=== PATIENT | male | born 1965 | race American Indian/Alaskan Native ===

== ENCOUNTER 2019-08-29 06:23 | Observation (INO) | payer SELFPAY ==
--- NOTE | 2019-08-29 07:24 | XRay Report ---
CHEST 1 VIEW INDICATION / CLINICAL INFORMATION: Chest Pain. COMPARISON: None available. FINDINGS: SUPPORT DEVICES: None. HEART / MEDIASTINUM: No significant abnormality. LUNGS / PLEURA: No significant pulmonary or pleural abnormality. No pneumothorax. ADDITIONAL FINDINGS: No significant additional findings. IMPRESSION: 1. No acute findings. Signer Name: Chaparrita Tripp MD Signed: 08/29/2019 7:20 AM Workstation Name: [id number]
[2019-08-29] MEDS ORDERED: fentaNYL 100 MCG/2 ML INJ IV ONE (07:28)
[2019-08-29] MEDS ORDERED: ONDANSETRON 4 MG/2 ML INJ IV ONE (07:28)
[2019-08-29] MEDS ORDERED: NITROGLYCERIN 2% OINT 1 GM TP ONE (07:28)
[2019-08-29] MEDS ORDERED: ASPIRIN 325 MG TAB PO ONE (07:29)
[2019-08-29 07:33] LABS: Basophils # (Auto) 0.1 K/mm3 (0.0-0.1); Eosinophils # (Auto) 0.3 K/mm3 (0.0-0.4); Eosinophils % (Auto) 5.3 % (0.0-4.3); Monocytes # (Auto) 0.6 K/mm3 (0.0-0.8); Monocytes % (Auto) 13.1 % (0.0-7.3)
--- NOTE | 2019-08-29 07:39 | Emergency Department Report ---
HPI - General Chief Complaint: Chest Pain Time Seen by Provider: 08/29/19 07:22 - HPI HPI: Room 4 The patient is a 54-year-old male presenting with a chief complaint of chest pain. The patient states for the past one week she's had intermittent left-si ded chest pain described as sharp/aching/pressure in nature. Patient is to shortness of breath but denies nausea/vomiting or diaphoresis with this pain. Patient admits to a pleuritic component. The patient states she was diagnosed with the left lower extremity DVT approximately 1-2 months ago but has not been able to afford his anticoagulation. Patient states she's never had a stress test or cardiac catheterization. The patient states he last used cocaine yesterday ED Past Medical Hx - Past Medical History Previous Medical History?: Yes Hx Hypertension: Yes Hx Deep Vein Thrombosis: Yes (x2) - Surgical History Past Surgical History?: No - Family History Family history: no significant - Social History Smoking Status: Current Every Day Smoker (1/2 pack per day) Substance Use Type: Alcohol (daily), Cocaine ED Review of Systems ROS: Stated complaint: CHEST PAIN Other details as noted in HPI Constitutional: denies: diaphoresis Eyes: denies: eye pain ENT: denies: throat pain Respiratory: shortness of breath Cardiovascular: chest pain Endocrine: no symptoms reported Gastrointestinal: denies: nausea, vomiting Genitourinary: denies: dysuria Musculoskeletal: denies: back pain Neurological: denies: headache Physical Exam - Physical Exam Vital Signs: Vital Signs 08/29/19 06:44 Temperature 98.6 F Pulse Rate 69 Respiratory 12 Rate Blood Pressure 150/101 O2 Sat by Pulse 97 Oximetry Physical Exam: GENERAL: The patient is well-developed well-nourished male lying on stretcher not appearing to be in acute distress. [] HEENT: Normocephalic. Atraumatic. Extraocular motions are intact. Patient has moist mucous membranes. NECK: Supple. Trachea midline CHEST/LUNGS: Clear to auscultation. There is no respiratory distress noted. HEART/CARDIOVASCULAR: Regular. There is no tachycardia. There is no gallop rub or murmur. ABDOMEN: Abdomen is soft, nontender. Patient has normal bowel sounds. There is no abdominal distention. SKIN: There is no rash. There is no edema. There is no diaphoresis. NEURO: The patient is awake, alert, and oriented. The patient is cooperative. The patient has normal speech MUSCULOSKELETAL:There is no evidence of acute injury. ED Course Vital Signs 08/29/19 06:44 Temperature 98.6 F Pulse Rate 69 Respiratory 12 Rate Blood Pressure 150/101 O2 Sat by Pulse 97 Oximetry ED Medical Decision Making - Lab Data Result diagrams: 08/29/19 07:01 08/29/19 07:01 Laboratory Tests 08/29/19 08/29/19 07:01 07:01 WBC 4.8 RBC 4.39 Hgb 13.9 Hct 40.7 MCV 93 MCH 32 MCHC 34 RDW 15.1 Plt Count 269 Lymph % (Auto) 43.3 H [place] % (Auto) 13.1 H Eos % (Auto) 5.3 H Baso % (Auto) 0.4 Lymph # 2.1 [place] # 0.6 Eos # 0.3 Baso # 0.1 Seg Neutrophils % 43.9 Seg Neutrophils # 2.1 Sodium 139 Potassium 3.8 Chloride 100.5 Carbon Dioxide 24 Anion Gap 18 BUN 5 L Creatinine 0.7 L Estimated GFR > 60 BUN/Creatinine Ratio 7 Glucose 93 Calcium 8.9 Troponin T < 0.010 - EKG Data -: EKG Interpreted by Me EKG shows normal: sinus rhythm Rate: normal - EKG Data Interpretation: nonspecific ST-T wave katie (T-wave inversion in lead V2) - Radiology Data Radiology results: report reviewed (chest x-ray, CT chest), image reviewed (chest x-ray, CT chest) interpreted by me: Chest x-ray-no focal infiltrates, no pneumothorax [facility] [address] [place] [address] XRay Report Signed Patient: MANOJ SOMMER MR#: [id number] [id number] : 1965 Acct:[id number] Age/Sex: 54 / M ADM Date: 08/29/19 Loc: ED Attending Dr: Ordering Physician: DAPHNE MAHAN MD Date of Service: 08/29/19 Procedure(s): XR chest 1V ap Accession Number(s): [id number] cc: DAPHNE MAHAN MD Fluoro Time In Minutes: CHEST 1 VIEW INDICATION / CLINICAL INFORMATION: Chest Pain. COMPARISON: None available. FINDINGS: SUPPORT DEVICES: None. HEART / MEDIASTINUM: No significant abnormality. LUNGS / PLEURA: No significant pulmonary or pleural abnormality. No pneumothorax. ADDITIONAL FINDINGS: No significant additional fin dings. IMPRESSION: 1. No acute findings. Signer Name: Chaparrita Tripp MD Signed: 08/29/2019 7:20 AM Workstation Name: [id number] Transcribed By: JR Dictated By: Chaparrita Tripp MD Electronically Authenticated By: Chaparrita Tripp MD Signed Date/Time: 08/29/19719 DD/ 8 TD/TT: [facility] [address] [place] [address] Cat Scan Report Signed Patient: MANOJ SOMMER MR#: [id number] : 1965 Acct:[id number] Age/Sex: 54 / M ADM Date: 08/29/19 Loc: ED Attending Dr: Ordering Physician: DAPHNE MAHAN MD Date of Service: 08/29/19 Procedure(s): CT angio chest Accession Number(s): [id number] cc: DAPHNE MAHAN MD CTA CHEST WITH IV CONTRAST INDICATION: chest pain, shortness of breath. TECHNIQUE: Axial CT images were obtained through the chest after injection of IV contrast. 3 plane MIP reconstructions were produced. All CT scans at this location are performed using CT dose reduction for ALARA by means of automated exposure control. COMPARISON: None available. FINDINGS: PULMONARY ARTERIES: No pulmonary emboli. THORACIC AORTA: No acute abnormality. HEART: Normal. CORONARY ARTERIES: No significant c alcification. PLEURA: No pleural effusion. No pneumothorax. LYMPH NODES: No significant adenopathy. LUNGS: No acute air space or interstitial disease. ADDITIONAL FINDINGS: None. UPPER ABDOMEN: Small hiatal hernia. No acute findings. SKELETAL STRUCTURES: No significant osseous abnormality. IMPRESSION: 1. No CT evidence for pulmonary embolism. 2. No acute findings. 3. Small hiatal hernia. Signer Name: Simon Gurrola MD Signed: 08/29/2019 8:51 AM Workstation Name: [id number] Transcribed By: TL Dictated By: Simon Gurrola MD Electronically Authenticated By: Simon Gurrola MD Signed Date/Time: 08/29/19850 DD/ 7 TD/TT: - Differential Diagnosis ACS, PE, pericarditis, GERD Critical care attestation.: If time is entered above; I have spent that time in minutes in the direct care of this critically ill patient, excluding procedure time. ED Disposition Clinical Impression: Chest pain Disposition: DC-09 OP ADMIT IP TO THIS HOSP Is pt being admited?: Yes Does the pt Need Aspirin: Yes Condition: Fair Instructions: Chest Pain (ED) Time of Disposition: 09:01 (hospitalist paged (Dr Canas))
[2019-08-29 07:48] LABS: BUN/Creatinine Ratio 7; Blood Urea Nitrogen 5 mg/dL (9-20); Calcium 8.9 mg/dL (8.4-10.2); Hemolysis Index 3
[2019-08-29 08:12] LABS: Basophils % (Auto) 0.4 % (0.0-1.8); Hematocrit 40.7 % (35.5-45.6); Hemoglobin 13.9 gm/dl (11.8-15.2); Lymphocytes # (Auto) 2.1 K/mm3 (1.2-5.4); Lymphocytes % (Auto) 43.3 % (13.4-35.0); Mean Corpuscular HGB Conc 34 % (32-34); Mean Corpuscular Volume 93 fl (84-94); Platelet Count 269 K/mm3 (140-440); Red Blood Count 4.39 M/mm3 (3.65-5.03); Red Cell Distribution Width 15.1 % (13.2-15.2)
--- NOTE | 2019-08-29 08:55 | Cat Scan Report ---
CTA CHEST WITH IV CONTRAST INDICATION: chest pain, shortness of breath. TECHNIQUE: Axial CT images were obtained through the chest after injection of IV contrast. 3 plane MIP reconstru ctions were produced. All CT scans at this location are performed using CT dose reduction for ALARA b y means of automated exposure control. COMPARISON: None available. FINDINGS: PULMONARY ARTERIES: No pulmonary emboli. THORACIC AORTA: No acute abnormality. HEART: Normal. CORONARY ARTERIES: No significant calcification. PLEURA: No pleural effusion. No pneumothorax. LYMPH NODES: No significant adenopathy. LUNGS: No acute air space or interstitial disease. ADDITIONAL FINDINGS: None. UPPER ABDOMEN: Small hiatal hernia. No acute findings. SKELETAL STRUCTURES: No significant osseous abnormality. IMPRESSION: 1. No CT evidence for pulmonary embolism. 2. No acute findings. 3. Small hiatal hernia. Signer Name: Simon Gurrola MD Signed: 08/29/2019 8:51 AM Workstation Name: [id number]
--- NOTE | 2019-08-29 13:42 | History and Physical Report ---
History of Present Illness Date of examination: 08/29/19 Date of admission: 08/29/19 09:02 Chief complaint: Chest pain for 2 days History of present illness: 54-year-old male presenting with a chief complaint of chest pain. The patient states for the past one week he's had intermittent left-sided chest pain described as sharp/aching/pressure in nature. Patient has shortness of breath but denies nausea/vomiting or diaphoresis with this pain. Patient admits to a pleuritic component. The patient states he was diagnosed with the left lower extremity DVT approximately 1-2 months ago but has not been able to afford his anticoagulation. Patient states he's never had a stress test or cardiac catheterization. The patient states he last used cocaine yesterday. Past Medical History Previous Medical History?: Yes Hypertension: Yes Deep Vein Thrombosis: Yes (x2) Surgical History Past Surgical History?: No Family History HTN Social History Smoking Status: Current Every Day Smoker (1/2 pack per day) Substance Use Type: Alcohol (daily), Cocaine Review of Systems ROS: Stated complaint: CHEST PAIN Other details as noted in HPI Constitutional: denies: diaphoresis Eyes: denies: eye pain ENT: denies: throat pain Respiratory: shortness of breath Cardiovascular: chest pain Endocrine: no symptoms reported Gastrointestinal: denies: nausea, vomiting Genitourinary: denies: dysuria Musculoskeletal: denies: back pain Neurological: denies: headache Medications and Allergies Allergies Allergy/AdvReac Type Severity Reaction Status Date / Time No Known Allergies Allergy Verified 08/29/19 06:44 Home Medications Medication Instructions Recorded Confirmed Last Taken Type No Known Home Medications [No 08/29/19 08/29/19 Unknown History Reported Home Medications] Exam - Constitutional Vitals: Temp Pulse Resp BP Pulse Ox 98.6 F 64 16 133/91 97 08/29/19 06:44 08/29/19 11:30 08/29/19 11:30 08/29/19 11:30 08/29/19 11:30 General appearance: Present: no acute distress, well-nourished - EENT Eyes: Present: PERRL ENT: hearing intact, clear oral mucosa - Neck Neck: Present: supple, normal ROM - Respiratory Respiratory effort: normal Respiratory: bilateral: CTA - Cardiovascular Heart Sounds: Present: S1 & S2. Absent: rub, click - Extremities Extremities: pulses symmetrical, No edema Peripheral Pulses: within normal limits - Abdominal General gastrointestinal: Present: soft, non-tender, non-distended, normal bowel sounds Male genitourinary: Present: normal - Integumentary Integumentary: Present: clear, warm, dry - Musculoskeletal Musculoskeletal: gait normal, strength equal bilaterally - Psychiatric Psychiatric: appropriate mood/affect, intact judgment & insight - Neurologic Neurologic: CNII-XII intact, moves all extremities Results - Labs CBC & Chem 7: 08/29/19 07:01 08/30/19 05:53 Labs: Laboratory Last Values WBC 4.8 K/mm3 (4.5-11.0) 08/29/19 07: RBC 4.39 M/mm3 (3.65-5.03) 08/29/19 07:01 Hgb 13.9 gm/dl (11.8-15.2) 08/29/19 07:01 Hct 40.7 % (35.5-45.6) 08/29/19 07:01 MCV 93 fl (84-94) 08/29/19 07:01 MCH 32 pg (28-32) 08/29/19 07:01 MCHC 34 % (32-34) 08/29/19 07:01 RDW 15.1 % (13.2-15.2) 08/29/19 07:01 Plt Count 269 K/mm3 (140-440) 08/29/19 07:01 Lymph % (Auto) 43.3 % (13.4-35.0) H 08/29/19 07:01 [place] % (Auto) 13.1 % (0.0-7.3) H 08/29/19 07:01 Eos % (Auto) 5.3 % (0.0-4.3) H 08/29/19 07:01 Baso % (Auto) 0.4 % (0.0-1.8) 08/29/19 07:01 Lymph # 2.1 K/mm3 (1.2-5.4) 08/29/19 07:01 [place] # 0.6 K/mm3 (0.0-0.8) 08/29/19 07:01 Eos # 0.3 K/mm3 (0.0-0.4) 08/29/19 07:01 Baso # 0.1 K/mm3 (0.0-0.1) 08/29/19 07:01 Seg Neutrophils % 43.9 % (40.0-70.0) 08/29/19 07:01 Seg Neutrophils # 2.1 K/mm3 (1.8-7.7) 08/29/19 07:01 Sodium 139 mmol/L (137-145) 08/29/19 07:01 Potassium 3.8 mmol/L (3.6-5.0) 08/29/19 07:01 Chloride 100.5 mmol/L (98-107) 08/29/19 07:01 Carbon Dioxide 24 mmol/L (22-30) 08/29/19 07:01 Anion Gap 18 mmol/L 08/29/19 07:01 BUN 5 mg/dL (9-20) L 08/29/19 07:01 Creatinine 0.7 mg/dL (0.8-1.5) L 08/29/19 07:01 Estimated GFR > 60 ml/min 08/29/19 07:01 BUN/Creatinine Ratio 7 % 08/29/19 07:01 Glucose 93 mg/dL (75-100) 08/29/19 07:01 Calcium 8.9 mg/dL (8.4-10.2) 08/29/19 07:01 Troponin T < 0.010 ng/mL (0.00-0.029) 08/29/19 09:40 Short CBC 08/29/19 Range/Units 07:01 WBC 4.8 (4.5-11.0) K/mm3 Hgb 13.9 (11.8-15.2) gm/dl Hct 40.7 (35.5-45.6) % Plt Count 269 (140-440) K/mm3 BMP 08/29/19 07:01 Sodium 139 Potassium 3.8 Chloride 100.5 Carbon Dioxide 24 BUN 5 L Creatinine 0.7 L Glucose 93 Calcium 8.9 Cardiac Enzymes 08/29/19 08/29/19 Range/Units 07:01 09:40 Troponin T < 0.010 < 0.010 (0.00-0.029) ng/mL - Imaging and Cardiology EKG: report reviewed Imaging and Cardiology: Chest CTA IMPRESSION: 1. No CT evidence for pulmonary embolism. 2. No acute findings. 3. Small hiatal hernia. Cxr NAF Assessment and Plan Advance Directives: Yes (Full code) VTE prophylaxis?: Chemical Plan of care discussed with patient/family: Yes - Patient Problems (1) Chest pain Current Visit: Yes Status: Acute Plan to address problem: Chest pain protocol For stress on Saturday (2) HTN (hypertension) Current Visit: Yes Status: Chronic Qualifiers: Hypertension type: essential hypertension Qualified Code(s): I10 - Essential (primary) hypertension Plan to address problem: Cont antihypertensives (3) Cocaine abuse Current Visit: Yes Status: Chronic Plan to address problem: Counselled and effects of cocaine causing coronary artery spasm. (4) DVT (deep venous thrombosis) Current Visit: Yes Status: Chronic Qualifiers: DVT location: lower extremity Laterality: left Plan to address problem: Was diagnosed a month ago Not taking Eliquis b/c of insurance not being there Resum Eliquis (5) DVT prophylaxis Current Visit: Yes Status: Acute Plan to address problem: on Lovenox
[2019-08-29] MEDS ORDERED: IBUPROFEN 600 MG TAB PO PRN (14:00)
[2019-08-29] MEDS ORDERED: ACETAMINOPHEN 325 MG TAB PO PRN (14:00)
[2019-08-29] MEDS ORDERED: ONDANSETRON 4 MG/2 ML INJ IV PRN (14:00)
[2019-08-29] MEDS: LOSARTAN 50 MG TAB PO SCH (14:28)
[2019-08-29] MEDS: FAMOTIDINE 20 MG TAB PO SCH ×2 (14:29→21:31)
[2019-08-29] MEDS: HYDROmorphone 1 MG/1 ML INJ IV PRN ×2 (14:29→19:44)
[2019-08-29] MEDS ORDERED: SIMETHICONE 80 MG CHEW TAB PO ONE (21:00)
[2019-08-29] MEDS ORDERED: SIMETHICONE 80 MG CHEW TAB PO PRN (21:39)
[2019-08-29] MEDS ORDERED: LORazepam 2 MG/ML VIAL IV PRN ×2 (21:54)
[2019-08-29] MEDS ORDERED: LORazepam 2 MG TAB PO PRN (21:54)
[2019-08-30 06:50] LABS: Alanine Aminotransferase 12 units/L (7-56); Albumin 3.7 g/dL (3.9-5); BUN/Creatinine Ratio 10; Blood Urea Nitrogen 7 mg/dL (9-20); Calcium 8.8 mg/dL (8.4-10.2); Hemolysis Index 5
[2019-08-30] MEDS: LOSARTAN 50 MG TAB PO SCH (09:04)
[2019-08-30] MEDS: FAMOTIDINE 20 MG TAB PO SCH ×2 (09:04→21:40)
--- NOTE | 2019-08-30 13:06 | Progress Note ---
Assessment and Plan - Patient Problems (1) Chest pain Current Visit: Yes Status: Acute Plan to address problem: Chest pain protocol For stress on Saturday (2) HTN (hypertension) Current Visit: Yes Status: Chronic Qualifiers: Hypertension type: essential hypertension Qualified Code(s): I10 - Essential (primary) hypertension Plan to address problem: Cont antihypertensives (3) Cocaine abuse Current Visit: Yes Status: Chronic Plan to address problem: Counselled and effects of cocaine causing coronary artery spasm. (4) DVT (deep venous thrombosis) Current Visit: Yes Status: Chronic Qualifiers: DVT location: lower extremity Laterality: left Plan to address problem: Was diagnosed a month ago Not taking Eliquis b/c of insurance not being there Resum Eliquis (5) DVT prophylaxis Current Visit: Yes Status: Acute Plan to address problem: on Lovenox Subjective Date of service: 08/30/19 Principal diagnosis: Chest pain for 2 days Interval history: 54-year-old male presenting with a chief complaint of chest pain. The patient states for the past one week he's had intermittent left-sided chest pain described as sharp/aching/pressure in nature. Patient has shortness of breath but denies nausea/vomiting or diaphoresis with this pain. Patient admits to a pleuritic component. The patient states he was diagnosed with the left lower extremity DVT approximately 1-2 months ago but has not been able to afford his anticoagulation. Patient states he's never had a stress test or cardiac catheterization. The patient states he last used cocaine day before Objective - Constitutional Vitals: Vital Signs - 12hr 08/30/19 08/30/19 08/30/19 03:49 05:04 05:06 Temperature 97.7 F Pulse Rate 69 76 Respiratory 18 Rate Blood Pressure 133/89 O2 Sat by Pulse 100 Oximetry 08/30/19 08/30/19 08/30/19 05:10 08:10 08:24 Temperature 97.4 F L Pulse Rate 68 70 Respiratory 20 18 Rate Blood Pressure 157/68 138/99 O2 Sat by Pulse 100 Oximetry 08/30/19 08/30/19 09:04 12:34 Temperature 97.3 F L Pulse Rate 68 85 Respiratory 18 Rate Blood Pressure 138/99 148/104 O2 Sat by Pulse 98 Oximetry General appearance: Present: no acute distress, well-nourished - EENT Eyes: PERRL, EOM intact ENT: hearing intact, clear oral mucosa Ears: bilateral: normal - Neck Neck: supple, normal ROM - Respiratory Respiratory effort: normal Respiratory: bilateral: CTA - Breasts Breasts: normal - Cardiovascular Heart rate: 78 Rhythm: regular Heart Sounds: Present: S1 & S2. Absent: gallop, rub Extremities: no ischemia, pulses intact, No edema, normal color, Full ROM - Gastrointestinal General gastrointestinal: Present: soft, non-tender, non-distended, normal bowel sounds - Genitourinary Male genitourinary: normal - Integumentary Integumentary: clear, warm, dry - Musculoskeletal Musculoskeletal: 1, strength equal bilaterally - Neurologic Neurologic: moves all extremities - Psychiatric Psychiatric: memory intact, appropriate mood/affect, intact judgment & insight - Labs CBC & Chem 7: 08/29/19 07:01 08/30/19 05:53 Labs: Abnormal lab results 08/30/19 Range/Units 05:53 Sodium 133 L (137-145) mmol/L Potassium 3.3 L (3.6-5.0) mmol/L Chloride 95.3 L (98-107) mmol/L BUN 7 L (9-20) mg/dL Creatinine 0.7 L (0.8-1.5) mg/dL Glucose 104 H (75-100) mg/dL Albumin 3.7 L (3.9-5) g/dL - Imaging and cardiology EKG: report reviewed
[2019-08-31] MEDS ORDERED: ENOXAPARIN 40 MG/0.4 ML INJ SUB-Q SCH (07:15)
[2019-08-31] MEDS ORDERED: APIXABAN 5 MG TAB PO SCH (10:00)
--- NOTE | 2019-08-31 13:55 | Discharge Summary ---
Providers - Providers Date of Admission: 08/29/19 09:02 Attending physician: MIGUELITO SANCHEZ MD [facility] Reason for admission: chest pain Condition: Stable Hospital course: 54-year-old male presenting with a chief complaint of chest pain. The patient states for the past one week he's had intermittent left-sided chest pain described as sharp/aching/pressure in nature. Patient has shortness of breath but denies nausea/vomiting or diaphoresis with this pain. Patient admits to a pleuritic component. The patient states he was diagnosed with the left lower extremity DVT approximately 1-2 months ago but has not been able to afford his anticoagulation. Patient states he's never had a stress test or cardiac ca theterization. The patient states he last used cocaine day before * Patient is a chronic alcoholic, has been to many programs without success, but motivated and enrolling in another program * He was given extensive counselling about ETOH, COCAIN AND TObacco, over 20 mins including addition 15 mins on medication compliance and physical responsibility for his meds. He had informed me that he lost his xarelto pills that was given to him free by another hospital twice * Stress test was negative * He was started on Eliquis (1) Atypical Chest pain SECONDARY TO GERD (2) HTN (hypertension) (3) Cocaine abuse (4) DVT (deep venous thrombosis) (5) GERD Disposition: - TO HOME OR SELFCARE Time spent for discharge: 35 mins Core Measure Documentation - Palliative Care Palliative Care/ Comfort Measures: Not Applicable - Core Measures Any of the following diagnoses?: none Exam - Constitutional Vitals: Temp Pulse Resp BP Pulse Ox 97.9 F 67 18 131/99 98 08/31/19 07:28 08/31/19 07:28 08/31/19 07:28 08/31/19 12:40 08/31/19 07:28 General appearance: Present: no acute distress, well-nourished - EENT Eyes: Present: PERRL, EOM intact ENT: hearing intact, clear oral mucosa - Neck Neck: Present: supple, normal ROM - Respiratory Respiratory effort: normal Respiratory: bilateral: CTA - Cardiovascular Rhythm: regular Heart Sounds: Present: S1 & S2. Absent: systolic murmur - Extremities Extremities: no ischemia, pulses intact, pulses symmetrical, No edema, normal temperature, normal color, Full ROM Peripheral Pulses: within normal limits - Abdominal General gastrointestinal: Present: soft, non-tender, non-distended, normal bowel sounds - Integumentary Integumentary: Present: clear, warm, dry - Musculoskeletal Musculoskeletal: strength equal bilaterally - Psychiatric Psychiatric: appropriate mood/affect, intact judgment & insight, memory intact, cooperative - Neurologic Neurologic: CNII-XII intact, moves all extremities - Allied Health Allied health notes reviewed: nursing Plan Activity: advance as tolerated, fall precautions Diet: low fat Special Instructions: record daily BP diary, smoking cessation (including etoh) [facility] [Primary Care Provider] - 7 Days Prescriptions: Losartan [Cozaar] 50 mg PO QDAY #30 tablet Apixaban [Eliquis] 5 mg PO Q12HR #60 tablet
[2019-08-31] MEDS ORDERED: POTASSIUM CHLORIDE ER 20 MEQ TAB PO ONE (15:13)
[2019-08-31] MEDS: FAMOTIDINE 20 MG TAB PO SCH (15:54)
[2019-08-31] MEDS: LOSARTAN 50 MG TAB PO SCH (15:54)
[2019-08-31 15:55] VITALS: BP 143/91
--- NOTE | 2019-09-01 01:35 | Treadmill Report ---
EXERCISE STRESS TEST REPORT REASON FOR TEST: Chest pain. The patient exercised for 8 minutes of a Jakob protocol, reaching stage 3 and achieving 9 mets. Peak heart rate was 131 beats per minute. Peak blood pressure was 159/88. There was no chest pain. Test was stopped for fatigue. Baseline ECG was sinus rhythm. With exercise, there were no ST changes of ischemia. No significant dysrhythmias were noted. CONCLUSION: 1. Above average exercise capacity. 2. No chest pain. 3. No ST changes of ischemia. 4. No significant dysrhythmias. This is a negative exercise ECG test. JOB# [id number] CA/NTS
== END 2019-08-31 16:00 | disposition home or self-care (01) ==
LOC: ED 06:23 → 4A 09:02
PROVIDERS: ADMIT Internal Medicine; ATTEND Internal Medicine
DX: R07.89 Other chest pain (principal); I10 Essential (primary) hypertension; F14.10 Cocaine abuse, uncomplicated; I82.402 Acute embolism and thrombosis of unspecified deep veins of left lower extremity; F17.210 Nicotine dependence, cigarettes, uncomplicated
CPT/HCPCS: 36415; 71045; 71275; 80048; 80053; 83036; 84484; 85025; 87116; 93005; 93010; 93017; 96374; 96375; 96376; 99284; G0378; J1170; J2060; J2405; J3010; Q9967

== ENCOUNTER 2019-10-23 07:02 | Emergency (ER) | payer SELFPAY ==
--- NOTE | 2019-10-23 08:42 | Emergency Department Report ---
ED ENT HPI - General Chief complaint: Dental/Oral Stated complaint: TOOTHACHE/SINUS INFECTION Time Seen by Provider: 10/23/19 08:17 Source: patient Mode of arrival: Ambulatory Limitations: No Limitations - History of Present Illness Initial comments: 54 yo M presents to ED with complaints of toothache and sinus infection. Pt states left lower molar has been bothering him x 1 month, states pain worsened 2 days ago. Has slight swelling to the jaw present. Pt denies fever. He also states he believes he has a sinus infection. Reports history of allergies and states that with the change in weather he has had nasal congestion. Denies facial pain and headache. MD complaint: tooth pain -: month(s) (1) Location: tooth # (17) Severity: moderate Quality: aching Consistency: constant Improves with: none Worsens with: eating Associated Symptoms: toothache. denies: fever, pain with swallowing, sore throat - Related Data Previous Rx's Medication Instructions Recorded Last Taken Type Apixaban [Eliquis] 5 mg PO Q12HR #60 tablet 08/31/19 Unknown Rx Losartan [Cozaar] 50 mg PO QDAY #30 tablet 08/31/19 Unknown Rx Penicillin V Potassium 500 mg PO TID 10 Days #30 tablet 10/23/19 Unknown Rx traMADoL [Ultram] 50 mg PO Q6HR PRN #7 tablet 10/23/19 Unknown Rx Allergies Allergy/AdvReac Type Severity Reaction Status Date / Time No Known Allergies Allergy Verified 08/29/19 06:44 ED Dental HPI - General Chief complaint: Dental/Oral Stated complaint: TOOTHACHE/SINUS INFECTION Time Seen by Provider: 10/23/19 08:17 Source: patient Mode of arrival: Ambulatory Limitations: No Limitations - Related Data Previous Rx's Medication Instructions Recorded Last Taken Type Apixaban [Eliquis] 5 mg PO Q12HR #60 tablet 08/31/19 Unknown Rx Losartan [Cozaar] 50 mg PO QDAY #30 tablet 08/31/19 Unknown Rx Penicillin V Potassium 500 mg PO TID 10 Days #30 tablet 10/23/19 Unknown Rx traMADoL [Ultram] 50 mg PO Q6HR PRN #7 tablet 10/23/19 Unknown Rx Allergies Allergy/AdvReac Type Severity Reaction Status Date / Time No Known Allergies Allergy Verified 08/29/19 06:44 ED Review of Systems ROS: Stated complaint: TOOTHACHE/SINUS INFECTION Other details as noted in HPI Comment: All other systems reviewed and negative Constitutional: denies: chills, fever ENT: dental pain, congestion. denies: throat pain Neurological: denies: headache ED Past Medical Hx - Past Medical History Previous Medical History?: Yes Hx Hypertension: Yes Hx Deep Vein Thrombosis: Yes (x2) - Surgical History Past Surgical History?: No - Social History Smoking Status: Former Smoker Substance Use Type: None - Medications Home Medications: Home Medications Medication Instructions Recorded Confirmed Last Taken Type Apixaban [Eliquis] 5 mg PO Q12HR #60 tablet 08/31/19 Unknown Rx Losartan [Cozaar] 50 mg PO QDAY #30 tablet 08/31/19 Unknown Rx Penicillin V Potassium 500 mg PO TID 10 Days #30 tablet 10/23/19 Unknown Rx traMADoL [Ultram] 50 mg PO Q6HR PRN #7 tablet 10/23/19 Unknown Rx ED Physical Exam - General Limitations: No Limitations General appearance: alert, in no apparent distress - Head Head exam: Present: atraumatic, normocephalic, other (no sinus tenderness present) - Eye Eye exam: Present: normal appearance, EOMI. Absent: conjunctival injection, periorbital swelling - ENT ENT exam: Present: mucous membranes moist, other (tooth #17 tender to percussion with adjacent gingival swelling without obvious abscess; no elevation of tongue; no trismus present) - Neck Neck exam: Present: other (very mild swelling to left submandibular area, no significant induration, no submental swelling or induration, no signs of Ranjith's angina) - Respiratory Respiratory exam: Present: normal lung sounds bilaterally. Absent: respiratory distress - Cardiovascular Cardiovascular Exam: Present: regular rate, normal rhythm - GI/Abdominal GI/Abdominal exam: Absent: distended - Extremities Exam Extremities exam: Present: normal inspection - Neurological Exam Neurological exam: Present: alert, oriented X3 - Psychiatric Psychiatric exam: Present: normal affect, normal mood - Skin Skin exam: Present: warm, dry, intact, normal color ED Course Vital Signs 10/23/19 10/23/19 10/23/19 07:10 09:02 09:04 Temperature 99.4 F 99.6 F Pulse Rate 94 H 71 Respiratory 18 20 17 Rate Blood Pressure 116/62 134/79 Blood Pressure [Left] O2 Sat by Pulse 98 98 Oximetry 10/23/19 09:33 Temperature Pulse Rate 86 Respiratory 16 Rate Blood Pressure Blood Pressure 130/79 [Left] O2 Sat by Pulse 99 Oximetry ED Medical Decision Making - Medical Decision Making Patient likely has dental abscess. No signs of Ranjith's angina present on exam. Vital signs are normal. Patient given prescription for antibiotics here in ED. Advised to follow-up with a dentist immediately. Return precautions given. - Differential Diagnosis dental abscess, dental caries, dentalgia Critical care attestation.: If time is entered above; I have spent that time in minutes in the direct care of this critically ill patient, excluding procedure time. ED Disposition Clinical Impression: Dental abscess Disposition: TO HOME OR SELFCARE Is pt being admited?: No Condition: Stable Instructions: Dental Abscess (ED) Prescriptions: Penicillin V Potassium 500 mg PO TID 10 Days #30 tablet traMADoL [Ultram] 50 mg PO Q6HR PRN #7 tablet PRN Reason: Pain Referrals: [facility] [Outside] - [facility] Time of Disposition: 08:49
[2019-10-23] MEDS ORDERED: MORPHINE 2 MG/1 ML INJ IM ONE (08:49)
[2019-10-23 09:34] VITALS: BP 130/79
== END 2019-10-23 09:33 | disposition home or self-care (01) ==
LOC: ED 07:02
DX: K04.7 Periapical abscess without sinus (principal); I10 Essential (primary) hypertension
CPT/HCPCS: 96372; 99282; J2270

== ENCOUNTER 2019-11-26 08:03 | Emergency (ER) | payer OTHER ==
--- NOTE | 2019-11-26 11:51 | Emergency Department Report ---
ED General Adult HPI - General Chief complaint: Back Pain/Injury Stated complaint: BACK PAIN Time Seen by Provider: 11/26/19 10:47 Source: patient Mode of arrival: Ambulatory Limitations: No Limitations - History of Present Illness Initial comments: 54-year-old -[place]inames[place] male patient complains of low back pain after jumping out of a truck and tingling of his feet one week ago. He rates his pain as a 10/10 in severity. He denies any difficulty with ambulation, leg weakness, loss of bladder/bowel control, or numbness. He admits to tingling in his left thigh. He states ibuprofen is not helping this pain. -: Sudden Radiation: non-radiation - Related Data Previous Rx's Medication Instructions Recorded Last Taken Type Apixaban [Eliquis] 5 mg PO Q12HR #60 tablet 08/31/19 Unknown Rx Losartan [Cozaar] 50 mg PO QDAY #30 tablet 08/31/19 Unknown Rx Penicillin V Potassium 500 mg PO TID 10 Days #30 tablet 10/23/19 Unknown Rx traMADoL [Ultram] 50 mg PO Q6HR PRN #7 tablet 10/23/19 Unknown Rx Diclofenac Sodium 50 mg PO TID PRN #18 tablet. 11/26/19 Unknown Rx methOCARBAMOL [Robaxin TAB] 1,500 mg PO Q8H PRN #30 tablet 11/26/19 Unknown Rx predniSONE [Deltasone] 20 mg PO TID 3 Days #9 tab 11/26/19 Unknown Rx Allergies Allergy/AdvReac Type Severity Reaction Status Date / Time No Known Allergies Allergy Verified 08/29/19 06:44 ED Review of Systems ROS: Stated complaint: BACK PAIN Other details as noted in HPI Constitutional: denies: chills, fever Musculoskeletal: as per HPI ED Past Medical Hx - Past Medical History Previous Medical History?: Yes Hx Hypertension: Yes Hx Deep Vein Thrombosis: Yes (x2) - Surgical History Past Surgical History?: No - Social History Smoking Status: Never Smoker Substance Use Type: None - Medications Home Medications: Home Medications Medication Instructions Recorded Confirmed Last Taken Type Apixaban [Eliquis] 5 mg PO Q12HR #60 tablet 08/31/19 Unknown Rx Losartan [Cozaar] 50 mg PO QDAY #30 tablet 08/31/19 Unknown Rx Penicillin V Potassium 500 mg PO TID 10 Days #30 tablet 10/23/19 Unknown Rx traMADoL [Ultram] 50 mg PO Q6HR PRN #7 tablet 10/23/19 Unknown Rx Diclofenac Sodium 50 mg PO TID PRN #18 tablet. 11/26/19 Unknown Rx methOCARBAMOL [Robaxin TAB] 1,500 mg PO Q8H PRN #30 tablet 11/26/19 Unknown Rx predniSONE [Deltasone] 20 mg PO TID 3 Days #9 tab 11/26/19 Unknown Rx ED Physical Exam - General Limitations: No Limitations General appearance: alert, in no apparent distress - Head Head exam: Present: atraumatic, normocephalic - Eye Eye exam: Present: normal appearance - ENT ENT exam: Present: mucous membranes moist - Neck Neck exam: Present: normal inspection - Respiratory Respiratory exam: Present: normal lung sounds bilaterally. Absent: respiratory distress - Cardiovascular Cardiovascular Exam: Present: regular rate, normal rhythm. Absent: systolic murmur, diastolic murmur, rubs, gallop - GI/Abdominal GI/Abdominal exam: Present: soft, normal bowel sounds. Absent: tenderness - Extremities Exam Extremities exam: Present: normal inspection, full ROM - Back Exam Back exam: Present: tenderness, paraspinal tenderness (lumbar), vertebral tenderness (bar) - Neurological Exam Neurological exam: Present: alert, oriented X3, normal gait. Absent: motor sensory deficit - Expanded Neurological Exam Expanded Sensory exam: Upper Extremity Light Touch: Normal, Lower Extremity Light Touch: Normal Motor strength exam: RUE: 5, LUE: 5, RLE: 5, LLE: 5 - Psychiatric Psychiatric exam: Present: normal affect, normal mood - Skin Skin exam: Present: warm, dry, intact, normal color. Absent: rash ED Course Vital Signs 11/26/19 08:26 Temperature 97.9 F Pulse Rate 64 Respiratory 16 Rate Blood Pressure 135/85 O2 Sat by Pulse 98 Oximetry ED Medical Decision Making - Radiology Data Radiology results: report reviewed Lumbar spine 2 views INDICATION: pain after injury, left leg tingling. COMPARISON: None. FINDINGS: Normal alignment. No fracture or subluxation. Moderate multilevel degenerative disc disease with disc space narrowing and osteophytes from T11-T12 through L3-4. [id number] multilevel facet joint arthropathy. IMPRESSION: 1. Moderate degenerative disc disease from T11-12 through L3-4. 2. No acute findings. - Medical Decision Making Patient here for low back pain times one week that occurred after jumping out of a truck and landing on his feet. He denies any loss of bladder/bowel control difficulty with ambulation, limb weakness, or loss of sensation into his legs. He does report mild tingling in his left leg, however his sensation and rest of neuro exam is normal. X-ray is negative for fracture, however does show chronic arthritis in his low back. Patient now rates his pain as a 2/10 in severity after medications and is ambulating without difficulty. Vitals are normal. Patient is stable for discharge home with follow-up with Ortho. Discussed very strict return precautions in great detail with patient who verbalizes understanding. Critical care attestation.: If time is entered above; I have spent that time in minutes in the direct care of this critically ill patient, excluding procedure time. ED Disposition Clinical Impression: Low back strain Qualifiers: Encounter type: initial encounter Qualified Code(s): S39.012A - Strain of muscle, fascia and tendon of lower back, initial encounter Disposition: TO HOME OR SELFCARE Is pt being admited?: No Condition: Stable Instructions: Low Back Strain (ED) Prescriptions: predniSONE [Deltasone] 20 mg PO TID 3 Days #9 tab Diclofenac Sodium 50 mg PO TID PRN #18 tablet. PRN Reason: pain methOCARBAMOL [Robaxin TAB] 1,500 mg PO Q8H PRN #30 tablet PRN Reason: muscle tightness Referrals: LASHAWN ALBERTO MD [Staff Physician] - 3-5 Days Forms: Work/School Release Form(ED)
[2019-11-26] MEDS ORDERED: KETOROLAC 30 MG/1 ML INJ IM ONE (11:55)
[2019-11-26] MEDS ORDERED: HYDROcodone/ACETAMINOPHEN 10-325MG TAB PO ONE (11:56)
[2019-11-26] MEDS ORDERED: KETOROLAC 60 MG/2 ML INJ IM ONE (12:15)
--- NOTE | 2019-11-26 12:58 | XRay Report ---
Lumbar spine 2 views INDICATION: pain after injury, left leg tingling. COMPARISON: None. FINDINGS: Normal alignment. No fracture or subluxation. Moderate multilevel degenerative disc disea se with disc space narrowing and osteophytes from T11-T12 through L3-4. [id number] multilevel f acet joint arthropathy. IMPRESSION: 1. Moderate degenerative disc disease from T11-12 through L3-4. 2. No acute findings. Signer Name: Haris Ford MD Signed: 11/26/2019 12:54 PM Workstation Name: [id number]
[2019-11-26 15:46] VITALS: BP 153/98
== END 2019-11-26 15:45 | disposition home or self-care (01) ==
LOC: ED 08:03
DX: S39.012A Strain of muscle, fascia and tendon of lower back, initial encounter (principal); Z86.718 Personal history of other venous thrombosis and embolism; Z79.01 Long term (current) use of anticoagulants; I10 Essential (primary) hypertension; Z79.899 Other long term (current) drug therapy; W17.89XA Other fall from one level to another, initial encounter; Y93.89 Activity, other specified; Y92.89 Other specified places as the place of occurrence of the external cause; Y99.8 Other external cause status
CPT/HCPCS: 72100; 96372; 99283; J1885